=== PATIENT | female | born 1930 | race African-American/Black ===

== ENCOUNTER → 2019-10-10 | Outpatient (CLI) | payer OTHER, MEDICAID ==
[~2019-10-10] VITALS: Ht 149.9 cm; Wt 71.7 kg
[~2019-10-10] MED LIST: LISINOPRIL-HCT1 EACH PO; NORVASC5 M1 PO; OMEPRAZOLE20 M1 PO; POTASSIUM99 M1 PO; RITUXAN100 MG/10 IV; TYLENOL325 MG PO; VITAMIN B-6100 MG PO; VITAMIN B12-FO1 EAC1 PO; VITAMIN D250 MCG PO
[2019-10-10 08:43] VITALS: BP 139/62
--- NOTE | 2019-10-10 08:59 | NUR ---
Pain Clinic Assessment: 1. History of Osteoarthritis: Left Lower Extremity Right Lower Extremity History of Rheumatoid Arthritis: * MULTIPLE JOINTS 2. Height: 4 ft. 11 in. 149.9 cm. Weight: 158.0 lb. oz. 71.668 kg. Patient's BMI: 31.9 3. Vital Signs: BP: 139/62 Pulse: 65 Resp: 14 Temp: 02 Sat: 100 ECG Mon: 4. Pain Intensity: 8 5. Fall Risk: Dizziness: N Needs help standing or walking: Y Fallen in the last 3 months: N Fall risk comments: 6. Patient on Blood Thinner: None 7. History of Hypertension: Y 8. Opioid Therapy greater than 6 weeks: N Opiate Contract Signed: 9. Risk Assessment Tool Provided: 10. Functional Assessment Tool: 11. Recreational Drug Use: Never Drug Type: Tobacco Use: Never Smoker Tobacco Type: Amount or Packs/day: How Many Years: Alcohol Use: No Frequency: Quant:
--- NOTE | 2019-10-11 12:40 | HPC ---
[facility] [place] [address] PAIN MANAGEMENT CONSULTATION Name: JENNIFER CLAY [facility] [id number] Admission: 10/10/19 Attend Phys: Martin Paredes DO Discharge: Date of : 12/08/30 Report #: [id number] THIS REPORT FOR: //name// CC: FAM physician/PCP FAM unknown Martin MONTIEL MD DATE OF SERVICE: 10/10/2019 REFERRING PHYSICIAN: Dr. Óscra Montiel. CHIEF COMPLAINT: Low back pain, left buttock and posterolateral thigh pain. HISTORY OF PRESENT ILLNESS: As you know, the patient is a very pleasant 88-year-old female, referred to our service by her orthopedic surgeon, Dr. Óscar Montiel with [facility] in [place] for low back pain, left lower extremity pain with intermittent paresthesias. The patient was seen in consultation by Dr. Montiel where they reviewed x-ray imaging, which showed diffuse significant lumbar degenerative changes and degenerative scoliosis with the apex on the left. She subsequently underwent an MRI of the lumbar spine, which showed stenotic changes at multiple levels with the greatest findings at the L4-5 level from central canal stenosis standpoint and the greatest changes at both the L4-5 and L5-S1 level for neural foraminal stenosis. She had changes at the T12-L1 level with moderate central canal stenosis due to a large central disk protrusion. She was referred to our clinic as it was determined her left-sided pain was not related to her hip. The patient indicates today her pain is continuous with intermittent, exacerbated with standing and walking. She indicates the pain as sharp in sensation. She denies numbness and tingling. She places current pain score at 8/10, daily average is 7/10, worst pain has been is 8/10. The patient indicates pain is exacerbated with walking, improves with sitting and lying down. The patient indicates no injury or trauma that may have led to symptom development. She states that it began spontaneously May 2019 and progressively worsened. They have tried [id number] pain medications and topical patches without much efficacy. Her pain is nonexistent in a seated and lying down position. She has been referred to our service to discuss options for interventional treatments. PAST MEDICAL HISTORY: 1. Chronic anemia. 2. Hypertension. 3. Hepatitis. 4. Degenerative joint disease. 5. Osteoarthritis. [address] [address] PAIN MANAGEMENT CONSULTATION Name: JENNIFER CLAY Room #: REG Lori Guillermo#: [id number] Admission: 10/10/19 Attend Phys: Martin Paredes DO Discharge: Date of : 12/08/30 Report #: [id number] 6. Rheumatoid arthritis. PAST SURGICAL HISTORY: 1. Appendectomy. 2. Hysterectomy. 3. Right total knee arthroplasty. 4. Right total hip arthroplasty. 5. Left total knee arthroplasty. SOCIAL HISTORY: The patient denies tobacco, alcohol, IV or illicit drug use. She is retired years ago. She is accompanied by her daughter present in room today. She is not receiving workmen's compensation nor is she trying to obtain disability benefits. She is not in litigation in regards to pain. REVIEW OF SYSTEMS: Positive for weight gain, decrease in appetite, fatigue and weakness, shortness of breath on walking or lying flat, loss of appetite, changes in skin color or texture, changes in hair and nails, numbness and tingling sensations, low back pain, left lower extremity pain, heat and cold intolerance and anemia. All other review of systems negative per 12-point review of systems other than those listed in history of present illness. Pain impact score, which is 52/70. Please add the rest of this dictation to my preexisting dictation that was inadvertently discontinued. IMAGING: MRI lumbar spine obtained 09/04/2019 shows T12-L1 with disk height loss, severe bilateral neural foraminal stenosis and moderate central canal stenosis. T12-L1 posterior paracentral disk bulge with cephalad extension above the disk level resulting in moderate central canal stenosis, deformed to the left ventral thecal sac, severe left neural foraminal stenosis seen at this level. There is bilateral facet hypertrophy. L1-L2 shows disk changes, hypertrophy of the joints, moderate right and mild left neural foraminal stenosis, mild central canal stenosis. L2-L3 bilateral facet hypertrophy resulting in moderate bilateral neural foraminal stenosis, greater on the right. L3-L4, diffuse disk bulge, facet hypertrophy, severe bilateral neural foraminal stenosis, moderate central canal narrowing. At L4-L5, there is a loss of height superiorly consistent with mild chronic compression deformity, severe neural foraminal stenosis bilaterally and severe central canal stenosis. L5-S1, disk space loss deformity of the thecal sac, marked facet hypertrophy resulting in severe neural foraminal stenosis. PHYSICAL EXAMINATION: VITAL SIGNS: Blood pressure 139/62, pulse 65, respiratory rate 14 and unlabored. The patient is 100% on room air. Height 4 feet 11 inches tall, weight 158 pounds, BMI calculated 31.9. GENERAL: Well-developed, well-nourished, well-hydrated 88-year-old female, appearing stated age, pain is rated today at 8/10. HEENT: Normocephalic, atraumatic. Pupils equal, round, reactive to light. [facility] [address] [place] [address] PAIN MANAGEMENT CONSULTATION Name: JENNIFER CLAY Room #: [facility]#: [id number] Admission: 10/10/19 Attend Phys: Martin Paredes DO Discharge: Date of : 12/08/30 Report #: [id number] Extraocular muscles are intact. NEUROLOGIC: Speech fluent. The patient is deemed a good historian. LUNGS: Clear, no wheeze, rhonchi or rales. CARDIOVASCULAR: Regular. No appreciable gallop, no rub. ABDOMEN: Soft, normoactive bowel sounds. EXTREMITIES: Show no clubbing, no cyanosis, no edema. MUSCULOSKELETAL: Lower extremity strength appears symmetrical 5/5, intact to light touch from L1 through S2 dermatomes. The patient's gait is antalgic, favoring left lower extremity over right. She is noted to have a stance with loss of lordotic curvature and there is some increased kyphosis of the thoracic spine. Seated straight leg raising negative. Supine straight leg raising negative. Alisia's test is negative. Modified Gaenslen's positive for axial low back pain. ASSESSMENT: 1. Symptomatic lumbar radiculopathy. 2. Severe central canal stenosis of lumbar spine. 3. Severe neural foraminal stenosis of the lumbar spine. 4. Displacement of lumbar intervertebral disk with radiculopathy. 5. Lumbosacral spondylosis with radiculopathy. 6. Degeneration of the lumbar spine. 7. Intractable pain. PLAN: 1. The patient has been referred to our service to discuss the possibility of treatment options for lumbar radiculopathy. The patient has significant changes throughout the thoracolumbar area that could be consistent with the symptoms that she is experiencing. She has changes at the T12-L1 level, which appears to correlate to the distribution of symptoms on the upper buttock and lower back, though it also is very tender to palpation in this area, which could be consistent with facet arthropathy. She also has severe central canal stenosis at multiple levels in the lumbar spine, which also could contribute to symptoms. We discussed the findings of her MRI indicating that ultimately surgical options will likely be necessary, though conservative options could be beneficial initially. We discussed the following treatment options with the patient today. We discussed physical therapy, stretching exercise, core strengthening as a potential treatment course. We discussed medication management providing suggestions to the referring physician for treatment options including the use of neuropathic pain medications, low-dose opioid for pain control and a consistent nonsteroidal anti-inflammatory. We discussed epidural injection under fluoroscopic guidance to address lumbar radicular symptoms directly. We also discussed intra-articular facet injections, medial branch nerve blocks and radiofrequency lesioning as a treatment course to address the facet joints of the lower lumbar spine, which shows severe near critical arthropathy. We also discussed ultimately the surgical options that appeared to be a possibility. After reviewing risks and benefits of all [address] [address] PAIN MANAGEMENT CONSULTATION Name: DANNAJENNIFER Room #: REG CLI Guillermo#: [id number] Admission: 10/10/19 Attend Phys: Martin Paredes DO Discharge: Date of : 12/08/30 Report #: [id number] proposed treatment options, the patient chose to begin with an epidural injection under fluoroscopic guidance. 2. The patient was advised risks and benefits of a lumbar epidural injection. These risks include but are not necessarily limited to bleeding, bruising, infection, worsening pain, no relief of pain, also risk of temporary or permanent muscle weakness, temporary or permanent nerve damage, possible paralysis, post-dural puncture headache and . The patient states she understood and wished to proceed. 3. No medication changes made at today's visit. If suggestions and treatment option will be necessary, we will provide those at our next visit. 4. We wish to thank Dr. Óscar Montiel for the referral of the patient to our clinic. We will keep you apprised of her response to treatment as we address suspected lumbar radiculopathy secondary to central canal and neural foraminal stenosis. Again, we wish to thank you for the opportunity to see the patient in consultation. PROCEDURE NOTE DESCRIPTION OF PROCEDURE: Lumbar epidural steroid injection under fluoroscopic guidance. This is the first procedure of the first series that the patient is undergoing. After obtaining written consent, the patient was taken back to the fluoroscopy suite, placed in a prone position with pillow under the abdomen to decrease lumbar lordosis. The skin overlying the lumbosacral area was then prepped and draped in aseptic fashion. The lumbar vertebral interspace was then identified by AP fluoroscopy. The skin and subcutaneous tissue overlying the target site of injection was anesthetized with 3 mL 1% lidocaine. A 20-gauge 3-1/2 inch Tuohy needle was then advanced under fluoroscopic guidance towards the epidural space using a parasagittal approach. The epidural space was identified using loss of resistance to air technique. After negative aspiration for heme or cerebrospinal fluid, a total of 1 mL of Omnipaque was injected. A lumbar epidurogram was confirmed using both AP and lateral fluoroscopy. After negative aspiration for heme or cerebrospinal fluid, 3 mL of a solution containing 2 mL 40 mg/mL, 80 mg of total triamcinolone along with 1 mL of lidocaine 1% was injected in increments. Contrast spread was noted in posterior epidural space. The needle was then retracted approximately half way and needle tract flushed with 1 mL of 1% lidocaine. Needle was then removed. There were no apparent sensory or motor deficits in the lower extremity following the procedure. A sterile bandage was placed over the injection site. The heart rate, pulse, oximetry and blood pressure were continuously monitored [facility] [address] [place] [address] PAIN MANAGEMENT CONSULTATION Name: JENNIFER CLAY Room #: REG [facility] Addison.#: [id number] Admission: 10/10/19 Attend Phys: Martin Paredes DO Discharge: Date of : 12/08/30 Report #: [id number] after the procedure. There were no complications. The patient tolerated the procedure well and was carefully escorted to the recovery room in stable condition. There were no apparent complications. After meeting discharge criteria, the patient was then discharged home. <ELECTRONICALLY SIGNED> By: Martin Paredes DO 10/11/19 [id number] [id number] Martin Paredes DO /nt
== END | disposition home or self-care (01) ==
LOC: PAIN 06:50
DX: M51.16 Intervertebral disc disorders with radiculopathy, lumbar region (principal); M48.061 Spinal stenosis, lumbar region without neurogenic claudication; M47.27 Other spondylosis with radiculopathy, lumbosacral region; G89.29 Other chronic pain; I10 Essential (primary) hypertension; M19.90 Unspecified osteoarthritis, unspecified site; M06.9 Rheumatoid arthritis, unspecified; D64.9 Anemia, unspecified; K75.9 Inflammatory liver disease, unspecified; Z98.890 Other specified postprocedural states; Z79.899 Other long term (current) drug therapy; Z90.49 Acquired absence of other specified parts of digestive tract; Z90.710 Acquired absence of both cervix and uterus; Z96.653 Presence of artificial knee joint, bilateral; Z96.641 Presence of right artificial hip joint

== ENCOUNTER → 2020-04-24 | Outpatient (CLI) | payer OTHER, MEDICAID ==
[~2020-04-24] VITALS: Ht 149.9 cm; Wt 70.3 kg
[2020-04-24 13:37] VITALS: BP 136/63
--- NOTE | 2020-04-24 13:54 | NUR ---
Pain Clinic Assessment: 1. History of Osteoarthritis: Left Lower Extremity Right Lower Extremity History of Rheumatoid Arthritis: MULTIPLE JOINTS 2. Height: 4 ft. 11 in. 149.9 cm. Weight: 155.0 lb. oz. 70.308 kg. Patient's BMI: 31.3 3. Vital Signs: BP: 136/63 Pulse: 74 Resp: 16 Temp: 02 Sat: 100 ECG Mon: 4. Pain Intensity: 8 5. Fall Risk: Dizziness: N Needs help standing or walking: Y Fallen in the last 3 months: N Fall risk comments: 6. Patient on Blood Thinner: None 7. History of Hypertension: Y 8. Opioid Therapy greater than 6 weeks: N Opiate Contract Signed: 9. Risk Assessment Tool Provided: low-0 10. Functional Assessment Tool: 11. Recreational Drug Use: Never Drug Type: Tobacco Use: Never Smoker Tobacco Type: Amount or Packs/day: How Many Years: Alcohol Use: No Frequency: Quant:
--- NOTE | 2020-05-01 12:55 | HPC ---
[facility] [address] [place] [address] PAIN MANAGEMENT CONSULTATION Name: JENNIFER CLAY Room #: REG GAEL Jaime.#: [id number] Admission: 04/24/20 Attend Phys: Martin Paredes DO Discharge: Date of : 12/08/30 Report #: [id number] THIS REPORT FOR: cc: FAM - Family physician unknown FAM - No family physician/PCP Martin Paredes DO ~ DATE OF SERVICE: 04/24/2020 REFERRING PHYSICIAN: Óscar Montiel MD CHIEF COMPLAINT: Low back pain, left buttock and posterolateral thigh pain. HISTORY OF PRESENT ILLNESS: As you know, the patient is a very pleasant 88-year-old female who suffers from longstanding lumbar radiculopathy involving low back and left lower extremity. She was sent to our clinic by her orthopedic surgeon to trial epidural injections under fluoroscopic guidance. The patient returns today in followup visit to undergo next in the series. She underwent the first epidural injection on 10/10/2019 with improvement in pain. She returns today in followup visit with pain levels of 8/10. Pain is exacerbated with walking and standing, improves with sitting and lying down. She returns today to undergo next in the series of lumbar epidural injections under fluoroscopic guidance. The patient denies injury or trauma that may have led to symptom continuation. She has had no significant changes in her medical history since our last visit. ALLERGIES: No known drug allergies. CURRENT MEDICATIONS: Amlodipine, lisinopril, hydrochlorothiazide, omeprazole, Rituxan, acetaminophen, vitamin D2, vitamin B6, cyanocobalamin and potassium gluconate. SOCIAL HISTORY: The patient denies tobacco, alcohol, IV or illicit drug use. She is retired, retired years ago, accompanied by her daughter, who is present in the room today. IMAGING: No new imaging available. PQRS: The patient has known arthritic changes of the cervical spine, lumbar spine, bilateral hips and knees. No rheumatoid arthritis. She is placing her current pain score at 8/10. She is a fall risk, but has not had a fall in last 3 months. She is not on blood thinners, but is treated for hypertension. She is not on opioids and has a low opioid addiction potential. Pain impact today is rated at 52/70, severe interference of daily activities secondary to pain. PHYSICAL EXAMINATION: [facility] [address] [place] [address] PAIN MANAGEMENT CONSULTATION Name: JENNIFER CLAY Room #: REG [facility].#: [id number] Admission: 04/24/20 Attend Phys: Martin Paredes DO Discharge: Date of : 12/08/30 Report #: [id number] VITAL SIGNS: Blood pressure 136/63, pulse 74, respiratory rate 16 and unlabored. The patient is 100% on room air. Height 4 feet 11 inches tall, weight 155 pounds, BMI calculated 31.3. GENERAL: Well-developed, well-nourished, well-hydrated 88-year-old female appearing stated age, pain is rated today at 8/10. HEENT: Normocephalic, atraumatic. Pupils are round. The patient is wearing a mask in compliance with COVID-19 restrictions. LUNGS: Appear clear. She is able to complete sentences without difficulty. No cough or wheezing. EXTREMITIES: Show no clubbing, no cyanosis, no edema. MUSCULOSKELETAL: Lower extremity strength is symmetrical. Normal tactile sensation from L1 through S2 dermatomes. Straight leg raising in the seated position is negative. Supine straight leg raising is negative. Alisia's test negative. Modified Gaenslen's positive for axial low back pain. Ankle clonus negative. Babinski is negative. ASSESSMENT: 1. Symptomatic lumbar radiculopathy. 2. Severe and progressively worsening spinal stenosis of lumbar spine. 3. Severe neural foraminal stenosis of lumbar spine. 4. Displacement of lumbar intervertebral disk with radiculopathy. 5. Lumbosacral spondylosis with radiculopathy. 6. Lumbar degeneration. 7. Chronic intractable pain. PLAN: 1. The patient returns today in followup visit to undergo next in the series of lumbar epidural injections under fluoroscopic guidance. She reports the initial epidural injection in September gave excellent benefit providing 50% improvement in overall pain. Unfortunately, her symptoms have begun to return. She returns today for next in the series. The patient has been advised risks and benefits of a lumbar epidural injection. These risks include but are not necessarily limited to bleeding, bruising, infection, worsening of pain, no relief of pain, also risk of temporary or permanent muscle weakness, temporary or permanent nerve damage, possible paralysis and . The patient states understood and wished to proceed. 2. No medication changes made at today's visit. The patient will continue current medical therapy as prior prescribed. 3. We will see the patient back in followup visit on an as needed basis for possible next in the series of lumbar epidural injections. DESCRIPTION OF PROCEDURE: L4-L5 interlaminar epidural steroid injection under fluoroscopic guidance. This is the second procedure of the first series that the patient is undergoing. [address] [address] PAIN MANAGEMENT CONSULTATION Name: JENNIFER CLAY Room #: REG GAEL Li#: [id number] Admission: 04/24/20 Attend Phys: Martin PeterCurt ReggieDO Discharge: Date of : 12/08/30 Report #: [id number] After obtaining written consent, the patient was taken back to the fluoroscopy suite, placed in a prone position with pillow under the abdomen to decrease lumbar lordosis. The skin overlying the lumbosacral area was then prepped and draped in aseptic fashion. The L4-L5 vertebral interspace was then identified by AP fluoroscopy. The skin and subcutaneous tissue overlying the target site of injection was anesthetized with 3 mL 1% lidocaine. A 20-gauge 3-1/2 inch Tuohy needle was then advanced under fluoroscopic guidance towards the epidural space using a parasagittal approach. The epidural space was identified using loss of resistance to air technique. After negative aspiration for heme or cerebrospinal fluid, a total of 1 mL of Omnipaque was injected. A lumbar epidurogram was confirmed using both AP and lateral fluoroscopy. After negative aspiration for heme or cerebrospinal fluid, 5 mL of a solution containing 2 mL 40 mg per mL, 80 mg total triamcinolone along with 3 mL lidocaine 1%was injected in increments. Contrast spread was noted posterior epidural space. The needle was then retracted approximately half way and needle tract flushed with 1 mL of 1% lidocaine. Needle was then removed. There were no apparent sensory or motor deficits in the lower extremity following the procedure. A sterile bandage was placed over the injection site. The heart rate, pulse, oximetry and blood pressure were continuously monitored after the procedure. There were no apparent complications. The patient tolerated the procedure well and was carefully escorted to the recovery room in stable condition. There were no apparent complications. After meeting discharge criteria, the patient was then discharged home. <ELECTRONICALLY SIGNED> By: Martin Paredes DO 05/01/20 1255 [id number] Martin Paredes DO /nt
== END | disposition home or self-care (01) ==
LOC: PAIN 06:59
PROVIDERS: ATTEND Anesthesiology Pain Medicine
DX: M51.16 Intervertebral disc disorders with radiculopathy, lumbar region (principal); M47.27 Other spondylosis with radiculopathy, lumbosacral region; M48.061 Spinal stenosis, lumbar region without neurogenic claudication; G89.29 Other chronic pain; I10 Essential (primary) hypertension; M19.90 Unspecified osteoarthritis, unspecified site; Z98.890 Other specified postprocedural states; Z79.899 Other long term (current) drug therapy